=== PATIENT | male | born 1995 | race Caucasian/White ===

== ENCOUNTER 2022-02-03 20:47 | Emergency (ER) | payer MEDICAID ==
[~2022-02-03] VITALS: Ht 167.6 cm; Wt 68.9 kg
[2022-02-03 20:53] VITALS: BP 126/64
[2022-02-03] MEDS ORDERED: ACETAMINOPHEN EXTRA STRENGTH 500 MG TAB PO ONE (22:20)
[2022-02-03] MEDS ORDERED: ACET-10509 PO (23:05)
--- NOTE | 2022-02-03 23:25 | NUR ---
Patient discharged with v/s stable. Written and verbal after care instructions given and explained. Patient verbalized understanding. Ambulatory with steady gait. All questions addressed prior to discharge. Advised to follow up with PMD.
[2022-02-03 23:28] VITALS: BP 124/68
== END 2022-02-03 23:25 | disposition home or self-care (01) ==
LOC: MED 20:47
DX: J06.9 Acute upper respiratory infection, unspecified (principal); R51.9 Headache, unspecified; J34.89 Other specified disorders of nose and nasal sinuses; R09.81 Nasal congestion; Z20.822 Contact with and (suspected) exposure to COVID-19
CPT/HCPCS: 71045; 99284